=== PATIENT | female | born 1965 | race African-American/Black ===

== ENCOUNTER 2020-12-07 15:18 | Emergency (ER) | payer MEDICAID, OTHER ==
[~2020-12-07] VITALS: Ht 175.3 cm; Wt 65.0 kg
[2020-12-07] MEDS ORDERED: DEXAMETHASONE 10 MG/ML VIAL IM ONE (16:45)
[2020-12-07] MEDS ORDERED: TRIAMCINOLONE ACETONIDE 0.1 % OINT 15GM TOP ONE (16:45)
[2020-12-07] MEDS ORDERED: MED4 MT (17:16)
[2020-12-07 17:27] VITALS: BP 162/95
== END 2020-12-07 17:28 | disposition home or self-care (01) ==
LOC: ER 15:18
DX: L40.0 Psoriasis vulgaris (principal); Z79.899 Other long term (current) drug therapy
CPT/HCPCS: 96372; 99283; J1100; Z7610

== ENCOUNTER 2020-12-07 20:49 | Emergency (ER) | payer OTHER ==
[~2020-12-07] VITALS: Ht 167.6 cm; Wt 70.0 kg
[~2020-12-07 20:49] MED LIST: MED4 MT
[2020-12-07 21:04] VITALS: BP 140/90
== END 2020-12-07 23:30 | disposition left against medical advice (07) ==
LOC: ER 20:49
DX: Z53.21 Procedure and treatment not carried out due to patient leaving prior to being seen by health care provider (principal)